=== PATIENT | male | born 1985 | race Caucasian/White ===

== ENCOUNTER 2017-10-08 18:07 | Emergency (ER) | payer OTHER ==
[~2017-10-08] VITALS: Ht 185.4 cm; Wt 77.6 kg
[2017-10-08] MEDS ORDERED: PREDNISONE 20 M20 M1 PO (19:26)
[2017-10-08] MEDS ORDERED: ZPAK PO (19:26)
[2017-10-08] MEDS ORDERED: PROAIR HFA8.5 GM INH (19:26)
[2017-10-08 19:39] LABS: INFLUENZA A ANTIGEN None Detected (None Detect); INFLUENZA B ANTIGEN None Detected (None Detect)
[2017-10-08 19:53] VITALS: BP 141/87
== END 2017-10-08 19:54 | disposition home or self-care (01) ==
LOC: M.ERS 18:07
PROVIDERS: Nurse Practitioner Family
DX: J18.9 Pneumonia, unspecified organism (principal); J20.9 Acute bronchitis, unspecified